=== PATIENT | female | born 1945 | race Hispanic/Latino ===

== ENCOUNTER 2017-05-11 13:45 | Day surgery (SDC) | payer OTHER ==
[2017-05-11] MEDS ORDERED: Midazolam 2 MG/2 ML VIAL ONE ×2 (15:10→15:43)
[2017-05-11] MEDS ORDERED: Iodixanol 320 MG/ML 200 ML BOTTLE IV ONE (15:19)
[2017-05-11] MEDS ORDERED: Iodixanol 320 MG/ML 100 ML BOTTLE IV ONE (15:46)
--- NOTE | 2017-05-14 07:31 | PROCN ---
DATE: 05/11/17 PROCEDURE PERFORMED: Distal abdominal aortogram with bilateral renal angiography, selective bilateral renal artery angiography, MINE MANAGER and stenting of right renal artery with use of 7.0 x 39 mm balloon expandable stent, MINE MANAGER of left renal artery with use of 7.0 x 40 mm balloon. TECHNIQUES OF PROCEDURE: After obtaining informed consent, the patient was brought to the cardiac cath with post-absorptive and non-sedated state. The patient was prepped and draped in the usual sterile fashion. A 2% lidocaine was used for infiltration of anesthesia. Using modified Seldinger technique, 6-Azerbaijani sheath was introduced into the right femoral artery. Subsequently over a Glidewire, Omni-Flush catheter was advanced into the abdominal aorta and nonselective abdominal aortogram with bilateral nonselective bilateral renal angiography was performed. Subsequently, the catheter was exchanged to a double renal curve diagnostic catheter which was used to engage the right and left renal artery. Selective angiograms of the right and renal arteries were performed in [place], [place] and [place] projections. ANGIOGRAPHIC FINDINGS: Right renal artery had a 75% mid stenosis with a 30 mm pressure gradient. Left renal artery had 70% proximal stenosis with a 60 mm pressure gradient. TECHNIQUES OF INTERVENTION: After reviewing the above angiographic finding, it was deemed imperative to fix the renal artery stenosis. The right renal artery was pre-dilated with a 6.0 balloon and subsequently stented with a 7.0 x 39 mm balloon expandable stent. The left renal artery was pre-dilated with a 6.0 balloon. IMPRESSION: Successful angioplasty of bilateral renal arteries, successful percutaneous transluminal angioplasty and stenting right renal artery with use of 7.0 x 39 mm stent. RECOMMENDATIONS: The patient is to be transferred back to [facility]. We will try to wean her off her blood pressure medicines gradually. The patient is to follow with me in one to two weeks in the office for further titration of her therapy. Les Doran MD
== END 2017-05-11 19:22 | disposition home or self-care (01) ==
LOC: C.CATHLAB 13:45
PROVIDERS: ATTEND Internal Medicine Interventional Cardiology
DX: I70.1 Atherosclerosis of renal artery (principal)
CPT/HCPCS: 36200; 36245; 36254; 75630; 82948; 85347; C1725; C1760; C1766; C1769; C1887; C1894; J0360; J1644; J2250; J3010; Q9966; Q9967

== ENCOUNTER 2018-02-12 06:26 | Day surgery (SDC) | payer MEDICARE, MEDICAID ==
[2018-02-07 10:22] VITALS: BMI 34.0
[2018-02-12] MEDS ORDERED: Midazolam 2 MG/2 ML VIAL ONE ×3 (09:20→10:39)
[2018-02-12] MEDS ORDERED: Iodixanol 320 MG/ML 200 ML BOTTLE IV ONE (09:23)
[2018-02-12] MEDS ORDERED: Nitroglycerin 50mg in D5W 50 MG/250 ML BOTTLE IV ONE (10:21)
[2018-02-12] MEDS ORDERED: Verapamil 2 ML ONE ×2 (10:21→10:29)
--- NOTE | 2018-02-13 10:19 | VAS ---
DATE: 02/12/2018 INDICATION: Yolanda Glynn is a 72-year-old female with history of bilateral renal artery stenosis, status post HUMAN CAPITAL CONSULTANT stenting, nonobstructive coronary artery disease, hypertension, dyslipidemia, peripheral vascular occlusive disease, who was having worsening symptoms of claudication. The patient had a noninvasive evaluation of short severe peripheral vascular occlusive disease and was being scheduled for possible angiogram for the last few months, but because of multiple scheduling conflicts was being delayed. She was finally brought to the general production laborer for further evaluation and treatment. PROCEDURES PERFORMED: Abdominal aortogram bilaterally with iliac runoff, selective bilateral iliofemoral angiogram with runoff, PT atherectomy of left SFA with use of 1.25 CSI atherectomy device, additional balloon angioplasty with a 5 x 150 drug-coated balloon, PT atherectomy of left popliteal and peroneal artery with use of 1.25 CSI atherectomy device, additional balloon angioplasty with 3.5 x 150 balloon, regeneration in the PT artery from the peroneal from 100% down to 0% BILLY-3 flow, regeneration in the SFA from 70% down to less than 10% BILLY-3 flow, 6-Kiswahili right femoral arterial access, Mynx closure device for hemostasis. ANGIOGRAPHIC FINDINGS: RIGHT LOWER EXTREMITY: Right common iliac, external iliac patent. SFA patent. Profunda femoris, patent. SFA mid 85% stenosis. Popliteal 70% stenosis, diffuse. AT disease, 90% stenosis, two vessel runoff below the knee. LEFT LOWER EXTREMITY: Left common iliac and external iliac patent. Profunda femoris, patent. SFA, mid high-grade 75% stenosis with 50 mm gradient, distal SFA 65% stenosis, popliteal 60%, peroneal 100% occluded with collaterals feeding the peroneal going down to the level of the ankle with distal peroneal vein thrombosis. TECHNIQUES OF INTERVENTION: A 6-Kiswahili 55 cm Destination [place] sheath was used to cross the aortoiliac bifurcation and was parked in the left SFA. Angioplasty, atherectomy, and balloon angioplasty of the popliteal and peroneal artery was done with degeneration down to 0% good BILLY-3 flow. Also additional balloon angioplasty with a drug-coated balloon of the SFA was done. IMPRESSION: Successful revascularization of the left superficial femoral artery, popliteal and peroneal with use of 1.25 CSI atherectomy device and additional balloon angioplasty with a drug-coated balloon. RECOMMENDATIONS: The patient needs to be observed for six hours. Continue the patient on dual antiplatelet therapy, guideline-directed therapy for peripheral vascular occlusive disease. The patient can be discharged to home in [address] Doran in one to two weeks' time. The patient is to undergo stage intervention of the contralateral limb. Les Doran MD
== END 2018-02-12 07:40 | disposition home or self-care (01) ==
LOC: C.CATHLAB 06:26
PROVIDERS: ATTEND Internal Medicine Interventional Cardiology
DX: I70.212 Atherosclerosis of native arteries of extremities with intermittent claudication, left leg (principal); I70.92 Chronic total occlusion of artery of the extremities; I70.1 Atherosclerosis of renal artery; Z95.820 Peripheral vascular angioplasty status with implants and grafts; I25.10 Atherosclerotic heart disease of native coronary artery without angina pectoris; E78.5 Hyperlipidemia, unspecified; I10 Essential (primary) hypertension
CPT/HCPCS: 36247; 37225; 37229; 75625; 75716; 75774; 76937; 82948; 99152; 99153; C1714; C1725; C1766; C1769; C1884; C1887; C1894; J1644; J2060; J2250; J3010; Q9966

== ENCOUNTER 2018-05-29 07:14 | Day surgery (SDC) | payer MEDICARE, OTHER ==
[2018-05-28 08:36] VITALS: BMI 31.3
[2018-05-29] MEDS ORDERED: Iodixanol 320 MG/ML 200 ML BOTTLE IV ONE (07:52)
[2018-05-29] MEDS ORDERED: Iodixanol 320 MG/ML 100 ML BOTTLE IV ONE (07:57)
[2018-05-29] MEDS ORDERED: Lidocaine 1% 20 MG/2 ML PF AMP ONE (07:58)
[2018-05-29] MEDS ORDERED: Verapamil 2 ML ONE (10:11)
[2018-05-29] MEDS ORDERED: Nitroglycerin 50mg in D5W 50 MG/250 ML BOTTLE IV ONE (10:12)
[2018-05-29] MEDS ORDERED: Midazolam 2 MG/2 ML VIAL ONE ×2 (10:30→13:05)
--- NOTE | 2018-05-30 14:57 | VAS ---
DATE: 05/29/2018 INDICATIONS: Yolanda is a pleasant 73-year-old female, who was seen in my office for evaluation of symptoms of claudication and rest pain of the right lower extremity. She had undergone an angiogram, atherectomy, angioplasty of the left lower extremity about 6 to 8 weeks ago, at which time, she was recognized to have severe right distal SFA, popliteal and infrageniculate disease. She was brought for angiography and intervention of the right SFA and infrageniculate disease. PROCEDURE PERFORMED: Distal abdominal aortogram, bilateral iliac runoff, selective bilateral renal artery angiogram, percutaneous transluminal coronary angioplasty, atherectomy of the right distal superficial femoral artery, popliteal and peroneal artery use of 1.25 solid CSI atherectomy device. Additional balloon angioplasty with a transition 3/s.5 x 200 balloon of the popliteal and peroneal CLEAN ROOM OPERATOR of the SFA with the use of 4 x 150 Impact drug-coated balloon, lesion reduction from 80% down to 0% in the SFA, popliteal and from 90% down to 0% in the peroneal with BILLY-3 flow. ANGIOGRAPHIC FINDINGS OF THE LEFT LOWER EXTREMITY: Left common iliac and external iliac patent, profunda femoris patent, SFA mild distal disease, popliteal patent, one-vessel runoff feeding the superficial and deep plantar arches of the feet, good flow with all angiosomes of the foot being fed by a collateralized flow from the peroneal feeding into the foot. Right lower extremity, right common iliac, and external iliac patent, profunda femoris patent, SFA distal 70% stenosis with a 30 mm gradient noted with a pullback gradient calculated, popliteal 80% stenosis, TP trunk 80% stenosis. Peroneal had 3 tandem 90% stenosis. Severely calcified lesions. One-vessel runoff below the knee feeding the feet. The superficial deep plantar arches fed via the collaterals from the peroneal artery. TECHNIQUES OF INTERVENTION: A 6-sao tomean 65 cm Destination [place] sheath was crossed over to the right from the left femoral to the right SFA, subsequently pullback gradients were calculated versus the physiological significance of the lesion in the SFA, popliteal, and the peroneal. At this point, a gold-tip Glidewire was negotiated 0.018 tip up to the level of the peroneal artery at the level of the ankle. Subsequently, a 1.25 solid CSI atherectomy was done over a Viper wire of the distal SFA, popliteal, and the peroneal. Subsequently, balloon angioplasty of the SFA and popliteal with the use of 4 x 150 drug-coated balloon, and subsequently, a 0.035 transition balloon was used for further angioplasty of the peroneal artery. Final angiogram was done, which showed improvement in the flow with filling of the atherectomized vessels in the foot, leg, and all angiosomes had better flow in the foot. IMPRESSION: Successful atherectomy and angioplasty of the right superficial femoral artery, popliteal, and peroneal artery with the use of 1.25 solid CSI atherectomy device, additional balloon angioplasty, selective bilateral renal artery angiogram, which showed bilateral renal artery stent was patent, and the left renal artery was nonobstructive. RECOMMENDATIONS: The patient is to continue dual antibiotic therapy, continue the patient on beta-blockers, statins, and BONY inhibitors. Continue aggressive medical management. The patient can be discharged home in four hours, follow up with Dr. Doran in one to two weeks' time. Les Doran MD [email or web address]
[2018-05-31 10:30] VITALS: RESP 14; O2SAT 100
--- NOTE | 2018-05-31 14:56 | CARD ---
APPROVED REPORT Date of service: 05/29/2018 EKG Measurement Heart [id number] <Conclusion> Sinus bradycardia with 1st degree AV block Septal infarct, age undetermined Abnormal ECG
== END 2018-05-29 16:15 | disposition home or self-care (01) ==
LOC: C.CATHLAB 07:14
PROVIDERS: ATTEND Internal Medicine Interventional Cardiology
DX: I44.0 Atrioventricular block, first degree (principal)
CPT/HCPCS: 36247; 36254; 37225; 37233; 75625; 75716; 75774; 76937; 82948; 85347; 93005; 94770; C1714; C1725; C1760; C1766; C1769; C1887; C1894; J1644; J2250; J3010; Q9966; Q9967